=== PATIENT | female | born 1995 | race Caucasian/White ===

== ENCOUNTER 2019-01-02 13:04 | Outpatient (CLI) | payer BC ==
[2019-01-02 13:42] LABS: eGFR (Non-African) > 60
== END 2019-01-02 13:06 ==
LOC: LAB 13:04
PROVIDERS: ATTEND Family Medicine
DX: Z00.00 Encounter for general adult medical examination without abnormal findings (principal)
CPT/HCPCS: 36415; 80053; 80061